=== PATIENT | female | born 1995 | race Asian ===

== ENCOUNTER 2020-05-11 10:43 | Emergency (ER) | payer BC, MEDICAID ==
[~2020-05-11] VITALS: Ht 157.5 cm; Wt 50.8 kg
[2020-05-11 10:54] VITALS: BP 120/72
[2020-05-11 11:37] LABS: INR 0.95 (0.9-1.15); Partial Thromboplastin Time 24.8 sec (23.0-31.2)
[2020-05-11 11:45] LABS: Calcium 8.4 mg/dL (8.5-10.1); Potassium 3.7 mmol/L (3.5-5.1)
[2020-05-11 11:48] LABS: BUN/Creatinine Ratio 16.4; Bilirubin, Total 0.1 mg/dL (0.2-1.0); Total Protein 6.6 g/dL (6.4-8.2)
== END 2020-05-11 15:19 | disposition home or self-care (01) ==
LOC: ER 10:43
DX: O20.9 Hemorrhage in early pregnancy, unspecified (principal); O99.341 Other mental disorders complicating pregnancy, first trimester; F41.9 Anxiety disorder, unspecified; Z3A.01 Less than 8 weeks gestation of pregnancy
CPT/HCPCS: 36415; 76801; 76817; 80053; 84702; 85610; 85730